=== PATIENT | male | born 1995 | race African-American/Black ===

== ENCOUNTER 2020-03-27 15:47 | Emergency (ER) | payer OTHER, MEDICAID ==
[~2020-03-27] VITALS: Ht 198.1 cm; Wt 95.7 kg
[2020-03-27 17:45] VITALS: BP 120/70
== END 2020-03-27 17:47 | disposition home or self-care (01) ==
LOC: ER 15:47
DX: S49.92XA Unspecified injury of left shoulder and upper arm, initial encounter (principal); V49.9XXA Car occupant (driver) (passenger) injured in unspecified traffic accident, initial encounter; Y93.89 Activity, other specified; Y92.89 Other specified places as the place of occurrence of the external cause; Y99.8 Other external cause status
CPT/HCPCS: 73090

== ENCOUNTER 2020-11-26 03:37 | Emergency (ER) | payer MEDICAID ==
[~2020-11-26] VITALS: Ht 198.1 cm; Wt 113.4 kg
[2020-11-26] MEDS ORDERED: ONDANSETRON HCL 4 MG/2 ML VIAL IV ONE (04:15)
[2020-11-26] MEDS ORDERED: HYDROmorphone HCL 2 MG/ML VL IV ONE (04:15)
[2020-11-26] MEDS ORDERED: TETANUS-DIPTH-ACEL PERTUSSIS 0.5ML SYR Tdap IM ONE (05:15)
[2020-11-26] MEDS ORDERED: BACITRACIN TOP OINT 1 UD PKG TOP ONE (06:45)
[2020-11-26 08:20] VITALS: BP 129/87
== END 2020-11-26 08:28 | disposition home or self-care (01) ==
LOC: EEVIPCON 03:37 → ER 03:37
DX: S41.132A Puncture wound without foreign body of left upper arm, initial encounter (principal); S41.131A Puncture wound without foreign body of right upper arm, initial encounter; W34.09XA Accidental discharge from other specified firearms, initial encounter; Y93.89 Activity, other specified; Y92.89 Other specified places as the place of occurrence of the external cause; Y99.8 Other external cause status
CPT/HCPCS: 73060; 73070; 73090; 90471; 90715